=== PATIENT | male | born 1975 | race Caucasian/White ===

== ENCOUNTER 2020-08-05 10:50 | Emergency (ER) | payer OTHER, SELFPAY ==
--- NOTE | 2020-08-05 10:51 | ED.GENADULT ---
HPI - General Adult General Chief complaint: Skin/Abscess/Foreign Body Stated complaint: sores on arms and legs Time Seen by Provider: 08/05/20 10:51 Source: patient Mode of arrival: ambulatory Limitations: no limitations History of Present Illness HPI narrative: 45-year-old male patient presents to the [facility] with complaints of a rash to the groin area and one spot to the right arm for the past 2 weeks. Patient states he has been trying to treat it with oral Benadryl and aaeh-kum-komirgc antifungal cream. Patient states he does have 2 dogs but he does not think that they have any ringworm that he is aware of. Patient states he also does work outside. Denies any fevers, body aches or chills. Related Data Allergies Allergy/AdvReac Type Severity Reaction Status Date / Time No Known Allergies Allergy Verified 08/05/20 11:12 Review of Systems Review of Systems: Narrative: CONSTITUTIONAL: Denies fever, chills, or sweats. EYES: Denies visual changes, redness, or discharge. ENT: Denies rhinorrhea, congestion, sore throat, or otalgia. CARDIOVASCULAR: Denies chest pain, palpitations, or edema. RESPIRATORY: Denies cough or dyspnea. GASTROINTESTINAL: Denies abdominal pain, nausea, vomiting, or diarrhea. GENITOURINARY: Denies dysuria or hematuria. SKIN: Positive rash to right arm and groin area with itching x2 weeks MUSCULOSKELETAL: Denies back pain, joint pain, or myalgia. NEUROLOGIC: Denies headache, numbness, or weakness. PSYCHIATRIC: Denies anxiety or depression. PMFSH Comments At the time of my signature I agree with nursing past medical history, surgical, social, and family history. There is no relevant family history pertinent to the presenting complaint. Exam Narrative: Exam Narrative: GENERAL: Well-appearing, well-nourished, and in no acute distress. HEAD: Normocephalic, atraumatic. EYES: PERRLA and EOMI. ENT: Nares clear, no rhinorrhea or epistaxis. Mucous membranes moist. NECK: Supple. No lymphadenopathy CHEST: Clear to auscultation. No respiratory distress. HEART: Regular rate and rhythm. No murmur heard. Normal peripheral pulses. ABDOMEN: Soft, nontender, nondistended, normal active bowel sounds. EXTREMITIES: Normal range of motion. No edema. SKIN: Warm, dry, patient has a circular rash to one area of the right arm with a clearing to the middle and dry scaly area noted along the border. Patient has a very similar rash throughout the entire groin area that appears shiny with a erythemic base. NEURO: No focal deficits. Alert and oriented x3. Course Vital Signs Vital signs: Vital Signs Temperature 36.6 C 08/05/20 10:58 Pulse Rate 91 08/05/20 10:58 Respiratory Rate 14 08/05/20 10:58 Blood Pressure 140/87 08/05/20 10:58 Pulse Oximetry 98 08/05/20 10:58 Temperature 36.6 C 08/05/20 10:58 Pulse Rate 91 08/05/20 10:58 Respiratory Rate 14 08/05/20 10:58 Blood Pressure 140/87 08/05/20 10:58 Pulse Oximetry 98 08/05/20 10:58 Vital signs reviewed. The patient has been informed that they may have pre-hypertension or Hypertension based on a BP reading in the department. I recommend that the patient call the primary care provider listed on their discharge instructions or a physician of their choice this week to arrange follow up for further evaluation of possible pre-hypertension or Hypertension Medical Decision Making Differential Diagnosis Differential Diagnosis: Differential diagnosis: Contact dermatitis, poison [place], poison [place], psoriasis, eczema, allergic reaction, drug reaction, scabies, tinea syphilis, lung disease, viral exanthema, pityriasis, erythema multiforme. Discussed with patient I think this is most likely ringworm. Discussed with patient we will go ahead and give him an antifungal cream that he needs to use for the next 4 weeks. He can continue using Benadryl to help with itching. Patient verbalized understanding. Recommended to patient that he should most likely get h
[2020-08-05 10:58] VITALS: BP 140/87; PULSE 91; RESP 14; TEMP 36.6; O2SAT 98
== END 2020-08-05 11:30 | disposition home or self-care (01) ==
PROVIDERS: Emergency Provider Nurse Practitioner Family
DX: B35.6 Tinea cruris (principal)
CPT/HCPCS: 99213; G0463

== ENCOUNTER 2020-10-27 13:28 | Emergency (ER) | payer OTHER, SELFPAY ==
[2020-10-27 13:33] VITALS: BP 147/90; PULSE 95; RESP 14; TEMP 36.6; O2SAT 99
--- NOTE | 2020-10-27 13:34 | ED.EYEPROB ---
HPI - Eye Problem General Chief complaint: Eye Problems Stated complaint: right eye fb Time Seen by Provider: 10/27/20 13:35 Source: patient and RN notes reviewed Mode of arrival: ambulatory Limitations: no limitations History of Present Illness HPI Narrative: 45-year male presents concern for possible foreign body in his right eye. Reports just prior to arrival he was working outside when he felt a piece of mortar hit his right eye. He feels like there is a foreign body. Reports he rinsed his eye prior to arrival. Reports mild eye irritation, watery drainage. Denies light sensitivity, vision changes. chief complaint: foreign body Related Data Allergies Allergy/AdvReac Type Severity Reaction Status Date / Time No Known Allergies Allergy Verified 10/27/20 13:42 Review of Systems Review of Systems: Narrative: CONSTITUTIONAL: Denies malaise, chills, sweats, or fever. EYES: Denies visual changes. Reports right eye irritation, redness, watery discharge. ENT: Denies rhinorrhea, congestion, sinus pain, otalgia or sore throat. CARDIOVASCULAR: Denies chest pain, palpitations, or edema. SKIN: Denies rash or itching. NEUROLOGIC: Denies headache. All systems reviewed & are unremarkable except as noted in HPI and below PMFSH Comments At time of signature, agree with nursing past medical, surgical, social and family history. There is no relevant family history pertinent to the presenting complaint Exam Narrative: Exam Narrative: GENERAL: Well-appearing, well-nourished, and in no acute distress. HEAD: Normocephalic, atraumatic. EYES: PERRLA, and EOMI. No nystagmus. Right eye scleral injection, no conjunctival injection, no eyelid edema, no visible foreign body. Corneal abrasion noted upon banda lamp exam, see note ENT: Mucous membranes moist. NECK: Supple. CHEST: No respiratory distress. Speaks in full sentences. HEART: Regular rate and rhythm. SKIN: Warm, dry, no rash. NEURO: Alert and oriented x3. PSYCH: Normal mood and affect Course Course Emergency Course: Patient is aware of diagnosis, understands and agrees to treatment plan. Anticipatory guidance given. Patient agrees to follow-up as directed and is aware of reasons to seek care at the emergency department. Portions of this record may have been created with voice recognition software Vital Signs Vital signs: Vital Signs Temperature 97.9 F 10/27/20 13:33 Pulse Rate 95 10/27/20 13:33 Respiratory Rate 14 10/27/20 13:33 Blood Pressure 147/90 H 10/27/20 13:33 Pulse Oximetry 99 10/27/20 13:33 Temperature 97.9 F 10/27/20 13:42 Pulse Rate 95 10/27/20 13:42 Respiratory Rate 14 10/27/20 13:42 Blood Pressure 147/90 H 10/27/20 13:42 Pulse Oximetry 99 10/27/20 13:42 Reviewed. Pt has been instructed to follow up with his primary care provider within the next week regarding his elevated blood pressure today. MDM - Eye Problem MDM Narrative Medical decision making narrative: Consideration of the following conditions may be warranted for the presenting problem, they are not final diagnoses: Bacterial conjunctivitis, allergic conjunctivitis, viral conjunctivitis, foreign body, blepharitis, chalazion, hordeolum, corneal abrasion. Exam findings show no acute concerns or changes; patient is non-toxic appearing and is in no distress. Patient is appropriate for outpatient treatment and follow-up. Critical Care Time Critical Care Time Critical Care Time: No Discharge Plan Discharge Clinical Impression: Corneal abrasion Qualifiers: Encounter type: initial encounter Laterality: right Qualified Code(s): S05.01XA - Injury of conjunctiva and corneal abrasion without foreign body, right eye, initial encounter Patient Disposition: Home, Self-Care Condition: Stable Instructions: Corneal Abrasion (ED) Additional Instructions: Corneal abrasions will heal in 1-2 days. Keep your eye shut and wearing sunglasses or staying in low light t
[2020-10-27 13:42] VITALS: BP 147/90; PULSE 95; RESP 14; TEMP 36.6; O2SAT 99
== END 2020-10-27 13:53 | disposition home or self-care (01) ==
PROVIDERS: Emergency Provider Nurse Practitioner
DX: S05.01XA Injury of conjunctiva and corneal abrasion without foreign body, right eye, initial encounter (principal); X58.XXXA Exposure to other specified factors, initial encounter
CPT/HCPCS: 99213; A9270; G0463

== ENCOUNTER 2023-10-09 08:40 | Emergency (ER) | payer OTHER, SELFPAY ==
[2023-10-09 09:04] VITALS: BP 141/73; PULSE 99; RESP 20; TEMP 37.8; O2SAT 98
--- NOTE | 2023-10-09 09:21 | ED.GENADULT ---
HPI - General Adult General Chief complaint: Upper Respiratory Infection Stated complaint: Cough Source: patient, RN notes reviewed and old records reviewed Mode of arrival: ambulatory Limitations: no limitations History of Present Illness HPI narrative: 48-year-old male patient presents to [facility] with complaint of cough, congestion, myalgias that started yesterday afternoon. Patient states taking lemx-qpi-iaujers medications with no relief. patient states son has influenza A. Patient denies dizziness, weakness, chest pain, shortness of breath. MD complaint: Cough congestion Onset (ago): day(s) (1) Related Data Allergies Allergy/AdvReac Type Severity Reaction Status Date / Time No Known Allergies Allergy Verified 10/09/23 09:41 Review of Systems Constitutional: Constitutional: Reports as per HPI, Reports body ache(s), Denies chills, Denies fatigue, Reports fever(s) and Denies headache(s) Eyes: Eyes: Reports no additional eye complaints and Denies blurry vision ENT: Reports as per HPI, Denies vertigo, Denies dizziness, Denies ear discharge, Denies otalgia, Denies facial pain, Denies headache(s), Reports nasal congestion, Reports nasal discharge, Denies sinus pain, Denies sinus pressure and Denies sore throat Cardiovascular: Cardiovascular: Reports no additional cardiovascular complaints, Denies chest pain, Denies chest pain at rest, Denies rapid heart rate and Denies dyspnea Respiratory: Respiratory: Reports as per HPI, Reports chest congestion, Reports cough, Denies pain on inspiration, Denies pain with cough and Denies dyspnea Gastrointestinal: Gastrointestinal: Denies abdominal pain, Denies diarrhea, Denies nausea and Denies vomiting Integumentary/Breasts: Skin/Breast: Denies rash Neurologic: Reports system reviewed and no additional complaints, except as documented, Denies vertigo, Denies dizziness and Denies headache(s) Endocrine: Endocrine: Denies fatigue PMFSH Comments At the time of my signature, I reviewed and agree with the nursing past medical, surgical, social, and family history. There is no relevant family history pertinent to the patient complaint. Exam Const: General: cooperative, healthy appearing, no acute distress and well nourished Nutritional Appearance: well nourished Orientation/consciousness: patient oriented x3 Limitations: no limitations HENMT: Head: normal to inspection and normocephalic Ears: external ears normal, TM's normal bilaterally, mastoids normal and Abnormal EAC present Face/Nose/Sinus: normal facial exam Face and sinus: normal facial exam Mouth: Yes Normal oral and palatal mucosa present, Yes oropharynx normal and Yes moist mucous membranes Throat: tonsils normal, uvula midline and no uvular edema Eyes: General: appearance normal, both eyes and all related structures Sclera: sclerae normal Pupils: Equal, round and reactive pupils present Resp: Effort & Inspection: normal respiratory effort, able to speak in complete sentences, no audible wheezes, no cough, no respiratory distress and no retractions Auscultation: clear to auscultation bilaterally, no crackles, no rales, no rhonchi and no wheezes Cardio: Rate: regular rate Rhythm: regular rhythm Skin: General skin exam: normal color and no rashes or lesions noted Neuro: General: patient oriented x3 Cranial nerves: Yes Equal, round and reactive pupils present Psych: Appearance: grossly normal Mental Status: mental status grossly normal Speech and movement: Normal speech and movement present Affect: normal affect Course Course Emergency Course: Patient is aware of diagnosis, understands and agrees to treatment plan.? Anticipatory guidance given.? Patient agrees to follow-up as directed and is aware of reasons to seek care at the emergency department. Some parts of this dictation were generated by voice recognition software and may contain typographical and/or grammatical inaccuracies. Level of Care: Express Ca
== END 2023-10-09 09:39 | disposition home or self-care (01) ==
PROVIDERS: Emergency Provider Registered Nurse
DX: J06.9 Acute upper respiratory infection, unspecified (principal); Z20.822 Contact with and (suspected) exposure to COVID-19
CPT/HCPCS: 87081; 87426; 87804; 87880; 99213; C9803; G0463

== ENCOUNTER 2024-02-06 14:25 | Emergency (ER) | payer OTHER, SELFPAY ==
[2024-02-06 14:30] VITALS: BP 134/87; PULSE 93; RESP 20; TEMP 36.1; O2SAT 99
--- NOTE | 2024-02-06 14:51 | ED.EYEPROB ---
HPI - Eye Problem General Chief complaint: Eye Problems Stated complaint: irritated eye Time Seen by Provider: 02/06/24 14:45 Source: patient, RN notes reviewed and old records reviewed Mode of arrival: ambulatory Limitations: no limitations History of Present Illness HPI Narrative: 48 year old male presents to [facility] care with complaints of feeling like he has something in his left eye with redness noted to sclera.reported photosensitivity,increased tearing. He states that he thinks he has some dirt or something in his eye after working outside today. Patient reports burning scratchy sensation to his left eye, states no sharp pain to his eye or any visual changes. He states that he irrigated his left eye with water but continues to feel like something is in his eye, denies any trauma to eye. MD chief complaint: eye redness, foreign body and other (increased tearing, photosensitivity) Onset (ago): day(s) (today) Duration: constant Location: left eye Eye Symptoms: burning, redness, foreign body sensation and photophobia Place: home Severity scale (1-10): 4 If Pain, Quality: burning and other (scratchy) Treatments Prior to Arrival: irrigated eye Related Data Allergies Allergy/AdvReac Type Severity Reaction Status Date / Time No Known Allergies Allergy Verified 02/06/24 14:37 Review of Systems Review of Systems: CONSTITUTIONAL: Denies fever, chills, or sweats. EYES: Denies visual changes. Reports redness,, irritation, foreign body sensation to his left eye,photophobia increased tearing, denies any visual changes or sharp pain ENT: Denies rhinorrhea, congestion, sore throat, or otalgia. CARDIOVASCULAR: Denies chest pain, palpitations, or edema. RESPIRATORY: Denies cough or dyspnea. SKIN: Denies rash or itching. NEUROLOGIC: Denies headache All systems reviewed & are unremarkable except as noted in HPI and below PMFSH Social History Social History (Updated 02/07/24 @ 09:47 by Flora Olvera NP) Smoking status: Never smoker Living arrangements: with family Gender identity (if verbalized by the patient): Male Comments At time of signature, agree with nursing past medical, surgical, social and family history. There is no relevant family history pertinent to the presenting complaint Exam Narrative: GENERAL: Well-appearing, well-nourished, and in no acute distress. HEAD: Normocephalic, atraumatic. EYES: PERRLA and EOMI. Upper and lower eyelids unremarkable. No periorbital cellulitis noted. Sclera injected with sensation of foreign body of left eye, tearing light sensitivity, see procedure note ENT: Nares clear, no rhinorrhea or epistaxis. Mucous membranes moist. NECK: Supple. no lymphadenopathy CHEST: Clear to auscultation. No respiratory distress.SAO2 99% on room air HEART: Regular rate and rhythm. No murmur heard. Normal peripheral pulses. SKIN: Warm, dry, no rash. NEURO: No focal deficits. Alert and oriented x3. Course Course Emergency Course: Patient is aware of diagnosis, understands and agrees to treatment plan. Anticipatory guidance given. Patient agrees to follow-up as directed and is aware of reasons to seek care at the emergency department. Portions of this record may have been created with voice recognition software Level of Care: Express Care Visit Vital Signs Vital signs: Vital Signs Temperature 36.1 C L 02/06/24 14:30 Pulse Rate 93 02/06/24 14:30 Respiratory Rate 20 02/06/24 14:30 Blood Pressure 134/87 02/06/24 14:30 Pulse Oximetry 99 02/06/24 14:30 Oxygen Delivery Room Air 02/06/24 14:30 Temperature 36.1 C L 02/06/24 14:30 Pulse Rate 93 02/06/24 14:30 Respiratory Rate 20 02/06/24 14:30 Blood Pressure 134/87 02/06/24 14:30 Pulse Oximetry 99 02/06/24 14:30 Oxygen Delivery Room Air 02/06/24 14:30 Reviewed Procedures FB Removal Eye Foreign Body #1: Foreign Body Removal Date: 02/06/24 Foreign Body Removal Time: 15:00
[2024-02-06] MEDS: TETRACAINE HCL 0.5% OPHTH SOLN 4 ML BTL 1 DROP EACH EYE (14:54)
[2024-02-06] MEDS: DACRIOSE EYE IRRIGATION 118 ML BOTTLE EACH EYE (14:54)
[2024-02-06] MEDS: FLUORESCEIN SOD 1 MG/STRIP EACH EYE (14:54)
== END 2024-02-06 15:25 | disposition home or self-care (01) ==
PROVIDERS: Emergency Provider Registered Nurse
DX: S05.02XA Injury of conjunctiva and corneal abrasion without foreign body, left eye, initial encounter (principal); X58.XXXA Exposure to other specified factors, initial encounter; T15.92XA Foreign body on external eye, part unspecified, left eye, initial encounter; W44.9XXA Unspecified foreign body entering into or through a natural orifice, initial encounter
CPT/HCPCS: 65205; 99213; A9270; G0463

== ENCOUNTER 2025-02-28 08:50 | Emergency (ER) | payer OTHER, SELFPAY ==
--- OUTSIDE RECORDS SUMMARY | 2025-02-28 08:52 | XMS_ITS | Referral Summary ---
Author Organization [facility] Address [address] [place] [address] Care Team Providers Care Care Associate Name Role Phone No, Physician Primary Care Provider [phone] Allergies No known active allergies Medications promethazine-DM (PROMETHAZINE-DM ) 1.25-3 mg/mL syrup TAKE 5 ML BY MOUTH EVERY 4 TO 6 HOURS NEEDED FOR COUGH 10/09/2023 Active Active Problems No known active problems Social History Tobacco Use Types Packs/Day Years Used Date Smoking Tobacco: Never Tobacco Cessation:Counseling Given: Not Answered Alcohol Use Standard Drinks/Week Comments Not Currently 0 (1 standard drink = 0.6 oz pur e alcohol) Sex and Gender Information Value Date Recorded Sex Assigned at Not on file Legal 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 Gender Identity Not on file Sexual Orientation Not on file Last Filed Vital Signs Vital Sign Reading Time Taken Comments Blood Pressure 111/85 10/30/2023 8:08 AM PATIENT REGISTRATION CLERK Pulse 78 10/30/2023 8:08 AM PATIENT REGISTRATION CLERK Temperature 36.6 C (97.9 F) 07/07/2022 10:14 PM CDT Respiratory Rate 18 07/08/2022 12:46 AM CDT Oxygen Saturation 100% 07/08/2022 12:46 AM CDT Inhaled Oxygen Concentration - - Weight 101.6 kg (224 lb) 10/30/2023 8:08 AM PATIENT REGISTRATION CLERK Height 174 cm (5' 8.5 ) 10/30/2023 8:08 AM PATIENT REGISTRATION CLERK Body Mass Index 33.56 10/30/2023 8:08 AM PATIENT REGISTRATION CLERK Plan of Treatment Not on file Insurance [facility] Care Teams Care Associate Relationship Specialty Start Date End Date No, Physician PCP - General 01/10/18
--- OUTSIDE RECORDS SUMMARY | 2025-02-28 08:52 | XMS_ITS | Clinical Summary ---
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 Gender Identity Not on file Sexual Orientation Not on file Obstetrics History Last Filed Vital Signs Vital Sign Reading Time Taken Comments Blood Pressure 111/85 10/30/2023 8:08 AM TIRE INSPECTOR Pulse 78 10/30/2023 8:08 AM TIRE INSPECTOR Temperature 36.6 C (97.9 F) 07/07/2022 10:14 PM CDT Respiratory Rate 18 07/08/2022 12:46 AM CDT Oxygen Saturation 100% 07/08/2022 12:46 AM CDT Inhaled Oxygen Concentration - - Weight 101.6 kg (224 lb) 10/30/2023 8:08 AM TIRE INSPECTOR Height 174 cm (5' 8.5 ) 10/30/2023 8:08 AM TIRE INSPECTOR Body Mass Index 33.56 10/30/2023 8:08 AM TIRE INSPECTOR Plan of Treatment Health Maintenance Due Date Last Done Comments Colon Cancer Screening-Colonoscopy 1973 Depression Screening 1973 Hepatitis C Screening 1973 Prostate Cancer Screening-PSA 1973 DTaP/Tdap/Td Vaccine (1 - Tdap) 1984 Hepatitis B Screening 1991 Regular Well Visit/Exam 18-64 1991 Zoster Vaccine (1 of 2) 2023 Covid-19 Vaccine (3 - 2023-2 5 season) 2024 04/02/2021, 03/12/2021 Influenza Vaccine (Season Ended) 2025 Pneumococcal vaccine <65 Aged Out No longer eligible based on patient's age to complete this topic Insurance [facility] Care Teams Sap Data Architect Relationship Specialty Start Date End Date No, Physician PCP - General 01/10/18
--- OUTSIDE RECORDS SUMMARY | 2025-02-28 08:52 | XMS_ITS | Continuity of Care Document ---
Author Organization [facility] Address [address] [place] [address] Phone Care Team Providers Care Central Supply Nurse Name Role Phone Chuck Smith MD Unavailable Unavailable Allergies, Adverse Reactions, Alerts Substance Reaction Status Criticality No Known Allergies Active No Inform ation Medications Medication Instructions Dosage Effective Dates (start - stop) Status Comments No Drug Therapy Prescribed Procedures Procedure Date PREV VISIT, NEW, AGE 40-64 Advance Directives Directive Yes / No Effective Date File Name No Information Encounters Encounter Description Practice Location Reason(s) For Visit Diagnoses Date Provider Providers Copied on Encounter [facility], [address], [place], [id number], tel:[phone] [facility] No Information Luis Woods. [address] [place], [place], [id number], . tel:[phone] PREV VISIT, NEW, AGE 40-64 [facility], [address], [place], [id number], tel:[phone] [facility] Physical (chief complaint) Encntr for general adult medical exam w/o abnormal findings Luis Woods. [address], [place], [id number], . tel:[phone] Family History Family Member Type Diagnosis Age At Onset Mother Problem (finding) Alive and well Father Problem (finding) Hypertension Sister Problem (finding) Alive and well Payers Payer name Insurance type Covered republican ID Authoriza tion(s) No Information Social History Type Description Quantity Date Captured Comments Alcohol Use Details Unknown Caffeine Use Details Unknown Tobacco Use Status No Information Smoking Status No Information Sex Male Chief Complaint And Reason For Visit No Information Plan Of Treatment Date Type Action Status Referral Ordered: CT ABD & PELVIS W/O CONTRAST ordered History Of Present Illness Encounter Date Complaint History Of Prese nt Illness Physical Pt needs annual physical Pt picked up something heavy 2 weeks ago and he felt acute onset of abdominal pain while lifting Pt feels constant pain around the area Pt feels dullache around 4/10, worse with exertion. Pt denies any nauea, vomiting, diarrhea, constipation Pt denies any other complaints. Pt denies any bulging mass. Pt feels slighlty tense around the abdominal wall area. Pt has normal BM Medications Administered Medication Instructions Dosage Effective Dates (start - stop) Status Comments No Drug Therapy Prescribed Instructions Date Instruction Additional Infor salvador Increase activity. Related to En cntr for general adult medical exam w/o abnormal findings Assessments Type Assessment Date No Information
--- OUTSIDE RECORDS SUMMARY | 2025-02-28 08:53 | XMS_ITS | Continuity of Care Document ---
Author Organization [facility] Address [address] [place] [address] Phone Care Team Providers Care Wastewater Project Manager Name Role Phone Chuck Smith MD Unavailable [...] Diagnoses Date Provider Providers Copied on Encounter [facility], [address], [place], [id number], tel:[phone] [facility] No Information Luis Woods. [address] [place], [place], [id number], . tel:[phone] PREV VISIT, NEW, AGE 40-64 [facility], [address], [place], [id number], tel:[phone] [facility] Physical (chief complaint) Encntr for general adult medical exam w/o abnormal findings Luis Woods. [address] [place], [place], [id number], . tel:[phone] Family History Family Member Type Diagnosis Age At Onset Mother Problem (finding) Alive and well Father Problem (finding) Hypertension Sister Problem (finding) Alive and well Payers Payer name Insurance type Covered green party ID Authoriza tion(s) No Information Social History [...]
[2025-02-28 08:54] VITALS: BP 135/87; PULSE 79; RESP 16; TEMP 35.9; O2SAT 97
--- NOTE | 2025-02-28 08:59 | ED.URI ---
HPI - URI/Sore Throat General Chief Complaint: Upper Respiratory Infection Stated Complaint: coughing Time Seen by Provider: 02/28/25 09:13 Source: patient and RN notes reviewed Mode of arrival: ambulatory Limitations: no limitations History of Present Illness HPI Narrative: 49-year-old male presents with concern for cough, runny nose, stuffy nose, chills, fever, general malaise. Reports symptoms started 2 days care. He has been taking TheraFlu,. Reports cough keeps him awake at night. MD elicited complaint: cough Related Data Allergies Allergy/AdvReac Type Severity Reaction Status Date / Time No Known Allergies Allergy Verified 02/28/25 09:04 Review of Systems Review of Systems: CONSTITUTIONAL: Reports malaise, chills, fever. EYES: Denies visual changes, redness, or discharge. ENT: Reports rhinorrhea, congestion CARDIOVASCULAR: Denies chest pain, palpitations, or edema. RESPIRATORY: Reports cough. Denies dyspnea. GASTROINTESTINAL: Denies abdominal pain, nausea, vomiting, diarrhea SKIN: Denies rash or itching. MUSCULOSKELETAL: Reports myalgia. NEUROLOGIC: Reports headache. All systems reviewed & are unremarkable except as noted in HPI and below PMFSH Social History Social History (Updated 02/07/24 @ 09:47 by Flora Olvera NP) Smoking status: Never smoker Living arrangements: with family Gender identity (if verbalized by the patient): Male Comments At time of signature, agree with nursing past medical, surgical, social and family history. There is no relevant family history pertinent to the presenting complaint Exam Narrative: GENERAL: Well-appearing, well-nourished, and in no acute distress. HEAD: Normocephalic EYES: PERRLA, conjunctivae clear ENT: Nares clear. Mucous membranes moist. TM pearly bush with dull light reflex bilaterally; no tragal tenderness. Oropharynx not erythematous without lesions. Tonsils not enlarged and without exudate, no drooling, no hoarseness, no trismus, uvula midline. NECK: Supple. No lymphadenopathy CHEST: Clear to auscultation, breath sounds equal. No wheezing, rhonchi, rales, or stridor. No respiratory distress, speaks in full sentences. HEART: Regular rate and rhythm. No murmur heard. SKIN: Warm, dry, no rash. NEURO: Alert and oriented x3. PSYCH: Normal mood and affect Course Course Emergency Course: Patient is aware of diagnosis, understands and agrees to treatment plan. Anticipatory guidance given. Patient agrees to follow-up as directed and is aware of reasons to seek care at the emergency department. Portions of this record may have been created with voice recognition software Level of Care: Express Care Visit Vital Signs Vital signs: Vital Signs Temperature 96.7 F L 02/28/25 08:54 Pulse Rate 79 02/28/25 08:54 Respiratory Rate 16 02/28/25 08:54 Blood Pressure 135/87 02/28/25 08:54 Pulse Oximetry 97 02/28/25 08:54 Oxygen Delivery Room Air 02/28/25 08:54 Temperature 96.7 F L 02/28/25 08:54 Pulse Rate 79 02/28/25 08:54 Respiratory Rate 16 02/28/25 08:54 Blood Pressure 135/87 02/28/25 08:54 Pulse Oximetry 97 02/28/25 08:54 Oxygen Delivery Room Air 02/28/25 08:54 Reviewed. MDM - URI/Sore Throat MDM Narrative Medical decision making narrative: Differential diagnosis considered: García virus, strep pharyngitis, allergic rhinitis, upper respiratory tract infection, sinusitis, rhinosinusitis, nasopharyngitis. viral pharyngitis, otitis media, otitis externa, pneumonia, bronchitis, viral cough syndrome, viral syndrome, and influenza. Exam findings show no acute concerns or changes; patient is non-toxic appearing and is in no distress. Patient is appropriate for outpatient treatment and follow-up. Lab Data Attestation: I reviewed the patient's lab results. Critical Care Time Critical Care Time Critical Care Time: No Discharge Plan Discharge Clinical Impression: COVID Patient Disposition: Home Condition: Stable Instructions: How to Recover from COVID-19 at Home (ED) Additional Instructions: Your rapid COVID test is positive. COVID is a virus, antibiotics are not effective against viruses. Your body has to kill viruses. ? Stay home when you are sick, except to get medical care. ? Stay home until your symptoms are resolving and you haven't had a fever for 24 hours. ? If you are self isolating at home where others live, use a separate room and bathroom for sick household members (if possible). Clean any shared rooms as needed, to avoid transmitting the virus. ? Wash your hands often with soap and water for at least 20 seconds, especially after blowing your nose, coughing, or sneezing; going to the bathroom; and before eating or preparing food. ? If soap and water are not available, use an alcohol-based hand camp recreation specialist with at least 60% alcohol. ? Have a supply of clean, disposable face masks. Everyone, no matter their COVID diagnosis, should wear face masks while in the home. - Over the counter medications such as Tylenol every 4 hours, ibuprofen every 6 hours (you can alternate these for maximum effect), Mucinex DM for cough, and psuedoephedrine (you must ask the pharmacist for this) can help relieve symptoms while your body fights off the virus. Watch for symptoms and learn when to seek emergency medical attention. If someone is showing any of these signs, seek emergency medical care immediately: ? Trouble breathing ? Persistent chest pain/pressure ? Confusion ? Inability to wake or stay awake ? Bluish lips or face Call 911 or call ahead to your local emergency room: Notify the telephone operator chief that you are seeking care for someone who has or may have COVID Patient Language: Croatian Prescriptions: New pseudoephedrine HCl [12 Hour Decongestant] 120 mg tablet extended release 120 mg PO Q12H PRN (Reason: nasal congestion) Qty: 20 0RF promethazine-DM 6.25-15 mg/5 mL syrup 5 ml PO Q4-6H PRN (Reason: cough) Qty: 120 0RF Follow-up/Referrals: PHYSICIAN,RN SOCIAL SERVICES [Primary Care Provider] - Time of Disposition: 09:23
[2025-02-28 09:17] LABS: EDCOVIDSCREEN Positive (Negative); EDINFLUASCREEN Negative (Negative); EDINFLUBSCREEN Negative (Negative)
== END 2025-02-28 09:27 | disposition home or self-care (01) ==
PROVIDERS: Emergency Provider Nurse Practitioner
DX: U07.1 COVID-19 (principal)
CPT/HCPCS: 87426; 87804; 99213; G0463